=== PATIENT | female | born 1950 | race Caucasian/White ===

== ENCOUNTER 2016-12-05 16:16 | Emergency (ER) | payer OTHER ==
--- NOTE | 2016-12-05 17:21 | DIAGNOSTIC IMAGING REPORT ---
PROCEDURE: XR CHEST 2 VIEW INDICATION: COUGH TECHNIQUE: PA and lateral views. COMPARISON: None. FINDINGS: There is a 9 mm nodule projected over the left seventh rib posteriorly. This is just to the left of the omer. Heart and mediastinum are normal. Thorax is normal. No acute infiltrates. IMPRESSION: 1. 9 mm pulmonary nodule on the left. Chest CT is recommended to confirm. 2. Results were called to Edda Moran at 05:15 p.m.
--- NOTE | 2016-12-05 17:50 | ED ORDER SUMMARY ---
..... Patient: RADHA PENG OrderSheet [facility] VisitID: [id number] [address] [place] [address] 66y, F Registration Date/Time: 12/05/2016 ORDER SHEET Weight: 95.2 kg (stated) Allergies: None GENERAL ORDERS: Chest 2V Urgent (16:37 12/05/2016 HBivens A.R.N.P.) (Ack 16:46 LNations ER Tech1) (16:56 [facility]) MEDICATION ORDERS: Albuterol Neb w Atrovent 1 unit dose (NOW) (16:37 12/05/2016 HBivens A.R.N.P.) (16:49 KEpting) Solu-MEDROL IM 125 mg (NOW) (16:37 12/05/2016 HBivens A.R.N.P.) (Ack 17:21 Cami R.N.) (17:30 Neisha R.N.) IV FLUIDS: ORDER SHEET NOTES: [Electronically signed by Edda MoranR.N.PAwilda (20:38 12/05/2016)] [Electronically signed by Thien Mckeon R.N. (23:38 12/08/2016)] [Electronically locked/signed by Thien Mckeon R.N. (23:38 12/08/2016)]
--- NOTE | 2016-12-05 17:50 | ED NURSING NOTES ---
Clinical Report - Nurses [facility] [address] [place] [address] 12/05/2016 16:18 Patient: ARDHA PENG TRIAGE Triage time 16:26 Dec 05 2016. Chief Complaint: COUGH and FEVER and (pt reports a cough and fever x 1 week,). Alert. --16:34 Thien Mckeon R.N. 16:25 12/05/16. BP: 111/78. HR: 111. RR: 21. O2 saturation: 90% on room air. Temp: 98 F. Pain level now: 0/10. --16:34 Thien Mckeon R.N. Weight: 95.2 kg stated. Height/Length: 65 inches Per Patient. BMI: 35. --16:34 Thien cMkeon R.N. Medications Albuterol Sulfate Inhalation. --16:38 Thien Mckeon R.N. Cholecalciferol Oral. --16:38 Thien Mckeon R.N. Cyanocobalamin Oral. --16:38 Thien Mckeon R.N. Doxylamine Succinate (Sleep) Oral. --16:38 Thien Mckeon R.N. Metoprolol Succinate ER Oral 50 mg , daily. --16:39 Thien Mckeon R.N. [place] 3 Oral. --16:39 Thien Mckeon R.N. Omeprazole Oral 20 mg, 2x a day. --16:39 Thien Mckeon R.N. Probiotic Daily Oral. --16:40 Thien Mckeon R.N. Vitamin E Complex Oral (Capsule 400 unit) 1 capsule, daily. --16:40 Thien Mckeon R.N. Tramadol HCL Oral 50 mg, 4x a day as needed. --16:41 Thien Mckeon R.N. Allergies None. --16:33 Thien Mckeon R.N. Medication/allergy information source: the patient. --16:34 Thien Mckeon R.N. History Arrived by private vehicle. Historian: patient. Accompanied by family. Onset. (1 weeks ago). She has had fatigue. Reports muscle aches. 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 PAST MEDICAL HX: Immunizations: up-to-date. The patient has had a hysterectomy. SOCIAL HX: Smoker- current status unknown (cigarette). No alcohol use or drug use. ABUSE ASSESSMENT: No report of abuse. SELF HARM ASSESSMENT: A self harm assessment was performed. The patient answered "no" to the question "Do you have thoughts of harming or killing yourself?". FALL RISK ASSESSMENT: Fall risk assessment completed. No fall risk identified. NUTRITIONAL RISK ASSESSMENT: The nutritional risk assessment revealed no deficiencies. FUNCTIONAL ASSESSMENT: Functional assessment: no impairments noted. LEARNING NEEDS ASSESSMENT: The learning needs assessment revealed no barriers. SKIN INTEGRITY ASSESSMENT: Skin integrity risk assessment completed. No skin integrity risk identified. --16:34 Thien Mckeon R.N. PROBLEMS: Acid reflux. Hypertension. PreDiabetic. COPD - Chronic Obstructive Pulmonary Disease. Diverticulitis. --16:33 Thien Mckeon R.N. ADDITIONAL SURGERIES: Appendectomy. Cardiac Catheterization. Hysterectomy. Polyp removal . --16:33 Thien Mckeon R.N. Interventions ID band on patient. To treatment room. --16:34 Thien Mckeon R.N. PHYSICAL ASSESSMENT To room via wheelchair. Patient gowned. GENERAL / NEURO / PSYCH: Alert. Oriented X 4. Appears in no acute distress. HEENT: Pupils equal, round and reactive to light. Mucous membranes are pink. RESPIRATORY: Mild respiratory distress. CVS: Capillary refill less than 2 seconds. SKIN: Skin is warm and dry. Normal skin turgor. --16:35 Thien Mckeon R.N. NURSING PROGRESS NOTES Monitoring of patient in place. Patient gowned. Head of bed elevated. Reassurance given. Call light placed in reach. Side rails up x 1. Bed placed in lowest position. Brakes of bed on. --16:35 Thien Mckeon R.N. 16:49 12/05/2016 ALBUTEROL NEB W ATROVENT Neb TX 1 unit dose given. --16:49 Elisa Jones 17:20 12/05/2016 Solu-Medrol (MethylPREDNISolone Sodium Succ) IM 125 mg given. Given in the right deltoid. Allergies verified and confirmed 5 rights. --17:30 Donell Scott R.N. Call light placed in reach. Side rails up. --17:39 Thien Mckeon R.N. 17:38 12/05/16. BP: 106/77. HR: 101. O2 saturation: 93% on room air. Pain level now: 0/10. --17:39 Thien Mckeon R.N. DISPOSITION / DISCHARGE Condition at departure: improved. --18:29 Thien Mckeon R.N. Condition at departure: improved. No learning barriers present. Discharge instructions provided and reviewed with the patient. Reviewed medication(s) side effects, precautions, dosing and course information. Prescription(s) given to the patient. Patient verbalized understanding. Written instructions provided in Telugu. The patient was discharged by the nurse practitioner. She was discharged home and accompanied by family. She left the Emergency Department ambulatory and via private vehicle. Family member driving. ( pt reports improvement since presentation, pts dc instructions gone over with pt and sister, pt strongly encouraged to stop smoking, pt given rx and f/u, pt to lobby with steady gait, speaks full sentences, clears oral secretions). --18:31 Thien Mckeon R.N. 18:29 12/05/16. BP: 104/76. HR: 98. RR: 17. O2 saturation: 93% on room air. Temp: deferred. Pain level now: 0/10. --18:31 Thien Mckeon R.N. Locked/Released at 12/08/2016 23:38 by Thien Mckeon R.N.
--- NOTE | 2016-12-05 17:50 | ED NURSING NOTES ---
Clinical Report - Nurses [facility] [address] [place] [address] 12/05/2016 16:18 Patient: RADHA PENG TRIAGE Triage time 16:26 Dec 05 2016. Chief Complaint: COUGH and FEVER and (pt reports a cough and fever x 1 week,). Alert. --16:34 Thien Mckeon R.N. 16:25 12/05/16. BP: 111/78. HR: 111. RR: 21. O2 saturation: 90% on room air. Temp: 98 F. Pain level now: 0/10. --16:34 Thien Mckeon R.N. Weight: 95.2 kg stated. Height/Length: 65 inches Per Patient. BMI: 35. --16:34 Thine Mckeon R.N. Medications Albuterol Sulfate Inhalation. --16:38 Thien Mckeon R.N. Cholecalciferol Oral. --16:38 Thien Mckeon R.N. Cyanocobalamin Oral. --16:38 Thien Mckeon R.N. Doxylamine Succinate (Sleep) Oral. --16:38 Thien Mckeon R.N. Metoprolol Succinate ER Oral 50 mg , daily. --16:39 Thien Mckeon R.N. [place] 3 Oral. --16:39 Thien Mckeon R.N. Omeprazole Oral 20 mg, 2x a day. --16:39 Thien Mckeon R.N. Probiotic Daily Oral. --16:40 Thien Mckeon R.N. Vitamin E Complex Oral (Capsule 400 unit) 1 capsule, daily. --16:40 Thien Mckeon R.N. Tramadol HCL Oral 50 mg, 4x a day as needed. --16:41 Thien Mckeon R.N. Allergies None. --16:33 Thien Mckeon R.N. Medication/allergy information source: the patient. --16:34 Thien Mckeon R.N. History Arrived by private vehicle. Historian: patient. Accompanied by family. Onset. (1 weeks ago). She has had fatigue. Reports muscle aches. 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 PAST MEDICAL HX: Immunizations: up-to-date. The patient has had a hysterectomy. SOCIAL HX: Smoker- current status unknown (cigarette). No alcohol use or drug use. ABUSE ASSESSMENT: No report of abuse. SELF HARM ASSESSMENT: A self harm assessment was performed. The patient answered "no" to the question "Do you have thoughts of harming or killing yourself?". FALL RISK ASSESSMENT: Fall risk assessment completed. No fall risk identified. NUTRITIONAL RISK ASSESSMENT: The nutritional risk assessment revealed no deficiencies. FUNCTIONAL ASSESSMENT: Functional assessment: no impairments noted. LEARNING NEEDS ASSESSMENT: The learning needs assessment revealed no barriers. SKIN INTEGRITY ASSESSMENT: Skin integrity risk assessment completed. No skin integrity risk identified. --16:34 Thien Mckeon R.N. PROBLEMS: Acid reflux. Hypertension. PreDiabetic. COPD - Chronic Obstructive Pulmonary Disease. Diverticulitis. --16:33 Thien Mckeon R.N. ADDITIONAL SURGERIES: Appendectomy. Cardiac Catheterization. Hysterectomy. Polyp removal . --16:33 Thien Mckeon R.N. Interventions ID band on patient. To treatment room. --16:34 Thien Mckeon R.N. PHYSICAL ASSESSMENT To room via wheelchair. Patient gowned. GENERAL / NEURO / PSYCH: Alert. Oriented X 4. Appears in no acute distress. HEENT: Pupils equal, round and reactive to light. Mucous membranes are pink. RESPIRATORY: Mild respiratory distress. CVS: Capillary refill less than 2 seconds. SKIN: Skin is warm and dry. Normal skin turgor. --16:35 Thien Mckeon R.N. NURSING PROGRESS NOTES Monitoring of patient in place. Patient gowned. Head of bed elevated. Reassurance given. Call light placed in reach. Side rails up x 1. Bed placed in lowest position. Brakes of bed on. --16:35 Thien Mckeon R.N. 16:49 12/05/2016 ALBUTEROL NEB W ATROVENT Neb [place] 1 unit dose given. --16:49 Elisa Jones 17:20 12/05/2016 Solu-Medrol (MethylPREDNISolone Sodium Succ) IM 125 mg given. Given in the right deltoid. Allergies verified and confirmed 5 rights. --17:30 Donell Scott R.N. Call light placed in reach. Side rails up. --17:39 Thien Mckeon R.N. 17:38 12/05/16. BP: 106/77. HR: 101. O2 saturation: 93% on room air. Pain level now: 0/10. --17:39 Thien Mckeon R.N. DISPOSITION / DISCHARGE Condition at departure: improved. --18:29 Thien Mckeon R.N. Condition at departure: improved. No learning barriers present. Discharge instructions provided and reviewed with the patient. Reviewed medication(s) side effects, precautions, dosing and course information. Prescription(s) given to the patient. Patient verbalized understanding. Written instructions provided in Frisian. The patient was discharged by the nurse practitioner. She was discharged home and accompanied by family. She left the Emergency Department ambulatory and via private vehicle. Family member driving. ( pt reports improvement since presentation, pts dc instructions gone over with pt and sister, pt strongly encouraged to stop smoking, pt given rx and f/u, pt to lobby with steady gait, speaks full sentences, clears oral secretions). --18:31 Thien Mckeon R.N. 18:29 12/05/16. BP: 104/76. HR: 98. RR: 17. O2 saturation: 93% on room air. Temp: deferred. Pain level now: 0/10. --18:31 Thien Mckeon R.N. Locked/Released at 12/08/2016 23:38 by Thien Mckeon R.N.
--- NOTE | 2016-12-05 17:50 | ED CLINICAL REPORT ---
Clinical Report - Physicians/Mid Levels [facility] [address] [place] [address] 12/05/2016 16:18 Patient: RADHA PENG Time Seen: 16:26; upon arrival, initial patient contact, initial documentation, patient care assumed. Arrived- By private vehicle. Historian- patient and family. HISTORY OF PRESENT ILLNESS Chief Complaint: COUGH and FEVER. This started about 1 weeks ago and is still present. The illness is described as moderate. The patient has had clear sputum, a cough, fever and muscle aches. She has had mild difficulty breathing (did neb tx approx 2 hrs ago, does neb tx daily, usually twice daily or more depending on weather, pollen). The patient has also had wheezing. No chest discomfort or pain, sore throat or nasal congestion or discharge. No sinus pressure, sinus drainage or ear pain. Additional history - No known contact with a sick individual. No recent travel. Similar symptoms previously: Recent medical care: Not recently seen/assessed. REVIEW OF SYSTEMS All systems otherwise negative, except as recorded above. PAST HISTORY See nurses notes. PROBLEMS: Acid reflux. Hypertension. PreDiabetic. COPD - Chronic Obstructive Pulmonary Disease. Diverticulitis. --16:33 Thien Mckeon, REsther. ADDITIONAL SURGERIES: Appendectomy. Cardiac Catheterization. Hysterectomy. Polyp removal . --16:33 Thien Mckeon R.N. SOCIAL HISTORY Light tobacco smoker. Not exposed to second-hand smoke at home. No alcohol use or drug use. No recent travel. Is a local resident. FAMILY HISTORY Negative. ADDITIONAL NOTES The nursing notes have been reviewed with agreement regarding the chief complaint, HPI, ROS, PMH and patient medications and allergies. PHYSICAL EXAM Vital Signs: 12/05/2016 16:25 BP: 111/78. HR: 111. RR: 21. O2 saturation: 90%. Temp: 98 F. Pain level now: 0/10. Have been reviewed as abnormal and appear to be correct. Blood pressure normal. Tachycardic. Respiratory rate normal. Temperature normal. Oxygen saturation low. Appearance: Alert. No acute distress. Eyes: Pupils equal, round and reactive to light. Eyes normal inspection. ENT: Ears normal. Nose normal. Pharynx normal. Uvula midline. Neck: Normal inspection. Neck supple. CVS: Normal heart rate and rhythm. Heart sounds normal. Pulses normal. Respiratory: No respiratory distress. Breath sounds abnormal. Inspiratory mild bilateral wheezes diffusely. Abdomen: Moderately obese. Back: Normal inspection. Skin: Skin warm and dry. Normal skin color. No rash. Normal skin turgor. Extremities: Extremities exhibit normal ROM. No lower extremity edema. Neuro: Oriented X 3. No motor deficit. No sensory deficit. LABS, X-RAYS, AND EKG Chest X-ray: (IMPRESSION: 1. 9 mm pulmonary nodule on the left. Chest CT is recommended to confirm. 2. Results were called to Edda Moran at 05:15 p.m. Electronically Final signed by:Neil Ventura MD 12/05/2016 5:22:28 PM). The X-rays were interpreted by the radiologist and discussed with the radiologist. PROGRESS AND PROCEDURES Course of Care: 17:37 12/05/16. Resp even and unlabored, nad, no change in lungs sounds, still B insp mild wheezing thru out, pulse ox ranging from 89-95% ra. Patient and family counseled in person regarding the patient's stable condition, test results and diagnosis. Differential Diagnosis: Other possible considerations: copd exac, bronchitis, pneumonia, asthma, uri, viral illness, flu. Above considerations are based on history, physical exam, reassessment and X-Ray data. Differential diagnosis was discussed with patient. Disposition: Discharged home in good and improved condition (17:50). Condition: good and stable. CLINICAL IMPRESSION Acute viral bronchitis. Stable COPD (chronic bronchitis) INSTRUCTIONS Drink plenty of fluids. Do not smoke. Warnings: Further evaluation is necessary in order to conduct further tests and assess the possibility of serious illness (9mm nodule seen on Left lower lung lobe, CT recommended, as discussed). It is very important to follow up with a physician. GENERAL WARNINGS: Return or contact your physician immediately if your condition worsens or changes unexpectedly, if not improving as expected, or if other problems arise. Specifically return if problem worsens. Prescription Medications: Prednisone 20 mg: take 3 orally every day for 5 days. Dispense fifteen (15). No refills. Follow-up: Follow up with your doctor tomorrow even if well. Call for an appointment. Summary of care provided to patient. Understanding of the discharge instructions verbalized by patient. (Electronically signed by Edda Moran A.R.N.P. 12/05/2016 20:38)
--- NOTE | 2016-12-05 17:50 | ED ORDER SUMMARY ---
..... Patient: RADHA PENG OrderSheet [facility] VisitID: [id number] [address] [place] [address] 66y, F Registration Date/Time: 12/05/2016 ORDER SHEET Weight: 95.2 kg (stated) Allergies: None GENERAL ORDERS: Chest 2V Urgent (16:37 12/05/2016 HBivens A.R.N.P.) (Ack 16:46 LNations ER Tech1) (16:56 [facility]) MEDICATION ORDERS: Albuterol Neb w Atrovent 1 unit dose (NOW) (16:37 12/05/2016 HBivens A.R.N.P.) (16:49 KEpting) Solu-MEDROL IM 125 mg (NOW) (16:37 12/05/2016 HBivens A.R.N.P.) (Ack 17:21 Cami R.N.) (17:30 Neisha R.N.) IV FLUIDS: ORDER SHEET NOTES: [Electronically signed by Edda MoranR.N.PAwilda (20:38 12/05/2016)] [Electronically signed by Thien Mckeon R.N. (23:38 12/08/2016)] [Electronically locked/signed by Thien Mckeon R.N. (23:38 12/08/2016)]
--- NOTE | 2016-12-08 23:38 | ED MAR SUMMARY ---
..... Medication Administration Record [facility] [address] [place] [address] Patient: RADHA PENG Visit ID: [id number] 66y, F Weight: 95.2 kg Height/Length: 65 in BMI: 35 ALLERGIES: None Given 16:49 12/05/2016 Elisa Jones, Medication Administered: ALBUTEROL NEB W ATROVENT, Dose: 1 unit dose Neb TX. Medication Ordered: Albuterol Neb w Atrovent 1 unit dose (NOW). Given 17:20 12/05/2016 Donell Scott R.N. Medication Administered: SOLU-MEDROL [IM] (METHYLPREDNISOLONE SODIUM SUCC), Dose: 125 mg IM. Medication Ordered: Solu-MEDROL IM 125 mg (NOW).
--- NOTE | 2016-12-08 23:38 | ED DISCHARGE INSTRUCTIONS ---
Patient: RADHA PENG General Instructions [facility] VisitID: [id number] [place] [address] 66y, F Registration Date/Time: 12/05/2016 Acute viral bronchitis. Stable COPD (chronic bronchitis) INSTRUCTIONS Drink plenty of fluids. Do not smoke. Warnings: Further evaluation is necessary in order to conduct further tests and assess the possibility of serious illness (9mm nodule seen on Left lower lung lobe, CT recommended, as discussed). It is very important to follow up with a physician. GENERAL WARNINGS: Return or contact your physician immediately if your condition worsens or changes unexpectedly, if not improving as expected, or if other problems arise. Specifically return if problem worsens. Prescription Medications: Prednisone 20 mg: take 3 orally every day for 5 days. Dispense fifteen (15). No refills. Follow-up: Follow up with your doctor tomorrow even if well. Call for an appointment. Summary of care provided to patient. Understanding of the discharge instructions verbalized by patient. ADDITIONAL INFORMATION Bronchitis, Viral (Adult: No Abx) You have a viral bronchitis. This illness is contagious during the first few days and is spread through the air by coughing and sneezing, or by direct contact (touching the sick person and then touching your own eyes, nose, or mouth). Most viral illnesses resolve within 10-14 days with rest and simple home remedies, although they may sometimes last for several weeks. Antibiotics will not kill a virus and are generally not prescribed for this condition. Home Care: If symptoms are severe, rest at home for the first 2-3 days. When resuming activity, don't let yourself become overly tired. Do not smoke and avoid the smoke of others. You may use acetaminophen (Tylenol) or ibuprofen (Motrin, Advil) to control fever or pain, unless another pain medicine was prescribed. [NOTE: If you have chronic liver or kidney disease or ever had a stomach ulcer or GI bleeding, talk with your doctor before using these medicines.] (Aspirin should never be used in anyone under 18 years of age who is ill with a fever. It may cause severe liver damage.) Your appetite may be poor so a light diet is fine. Avoid dehydration by drinking 6-8 glasses of fluids per day (water, sport drinks such as Gatorade, juices, tea, soup, etc.). Extra fluids will help loosen secretions in the nose and lung. Sfzl-wgg-deqdeue cold medicines will not shorten the length of the illness, but may be helpful for cough (Robitussin DM), sore throat (Chloraseptic lozenges or spray), nasal and sinus congestion (Actifed or Sudafed). [NOTE: Do not use decongestants if you have high blood pressure.] Follow Up with your doctor or as directed by our staff if you are not improving over the next week. NOTE: If you are age 65 or older, or if you have chronic asthma or COPD, we recommend a PNEUMOCOCCAL VACCINATION every five years and a yearly INFLUENZAVACCINATION (FLU-SHOT) every . Ask your doctor about this. If you had an X-ray, a radiologist will review it. You will be notified of any new findings that may affect your care.] Get Prompt Medical Attention if any of the following occur: Fever over 100.4F (38.0C) for more than three days Trouble breathing, wheezing or pain with breathing Coughing up blood or increased amounts of colored sputum Weakness, drowsiness, headache, facial pain, ear pain or a stiff neck Bronchitis With Wheezing (Viral Or Bacterial: Adult) Bronchitis is an infection of the air passages. It often occurs during the common cold and is usually caused by a virus. Symptoms include cough with mucus (phlegm) and low-grade fever. If there is a lot of inflammation, air flow is restricted. The air passages may also go into spasm, especially if you are an asthmatic. This causes wheezing and difficulty breathing even in persons who do not have asthma. Bronchitis usually lasts 7-14 days. The wheezing should improve with treatment during the first week. An inhaler is often prescribed to relax the air passages and stop wheezing. Antibiotics will be prescribed if your doctor thinks there is also a secondary bacterial infection. Home Care: If symptoms are severe, rest at home for the first 2-3 days. When resuming activity, don't let yourself become overly tired. Do not smoke and avoid exposure to the smoke of others. You may use acetaminophen (Tylenol) or ibuprofen (Motrin, Advil) to control fever, unless another medicine was prescribed. [NOTE: If you have chronic liver or kidney disease or ever had a stomach ulcer or GI bleeding, talk with your doctor before using these medicines.] (Aspirin should never be used in anyone under 18 years of age who is ill with a fever. It may cause severe liver damage.) Your appetite may be poor so a light diet is fine. Avoid dehydration by drinking 6-8 glasses of fluids per day (water, soft, drinks, juices, tea, soup, etc.). Extra fluids will help loosen secretions in the lungs. Gyzj-kkb-uqtjpod cough medicines that containdextromethorphan(such as Robitussin DM) and decongestants (Actifed or Sudafed) may help relieve cough and congestion. [NOTE: Do not use decongestants if you have high blood pressure.] If you were given an inhaler, use it exactly as directed. If you need to use it more often than prescribed, your condition may be worsening. Contact your doctor or this facility. If prescribed, finish all antibiotic medicine, even if you are feeling better after only a few days. Follow Up With Your Doctor Or As Directed If You Are Not Starting To Feel Better After Three Days. [NOTE: If you are age 65 or older, or if you have chronic asthma or COPD, we recommend a pneumococcal vaccination every five years and a yearly influenza vaccination (flu shot) every . Ask your doctor about this. If you had an x-ray or EKG (electrocardiogram), it will be reviewed by a specialist. You will be notified of any new findings that may affect your care.] Get Prompt Medical Attention If Any Of The Following Occur: Increased wheezing, shortness of breath or pain with breathing Fever of 100.4F (38C) oral or higher, not better with fever medication Coughing up blood or increasing amounts of colored sputum Weakness, drowsiness, headache, facial pain, ear pain or a stiff neck Lower leg swelling, tenderness, redness or pain Bronchitis, Viral (Adult: No Abx) You have a viral bronchitis. This illness is contagious during the first few days and is spread through the air by coughing and sneezing, or by direct contact (touching the sick person and then touching your own eyes, nose, or mouth). Most viral illnesses resolve within 10-14 days with rest and simple home remedies, although they may sometimes last for several weeks. Antibiotics will not kill a virus and are generally not prescribed for this condition. Home Care: If symptoms are severe, rest at home for the first 2-3 days. When resuming activity, don't let yourself become overly tired. Do not smoke and avoid the smoke of others. You may use acetaminophen (Tylenol) or ibuprofen (Motrin, Advil) to control fever or pain, unless another pain medicine was prescribed. [NOTE: If you have chronic liver or kidney disease or ever had a stomach ulcer or GI bleeding, talk with your doctor before using these medicines.] (Aspirin should never be used in anyone under 18 years of age who is ill with a fever. It may cause severe liver damage.) Your appetite may be poor so a light diet is fine. Avoid dehydration by drinking 6-8 glasses of fluids per day (water, sport drinks such as Gatorade, juices, tea, soup, etc.). Extra fluids will help loosen secretions in the nose and lung. Jhox-fli-atmoujl cold medicines will not shorten the length of the illness, but may be helpful for cough (Robitussin DM), sore throat (Chloraseptic lozenges or spray), nasal and sinus congestion (Actifed or Sudafed). [NOTE: Do not use decongestants if you have high blood pressure.] Follow Up with your doctor or as directed by our staff if you are not improving over the next week. NOTE: If you are age 65 or older, or if you have chronic asthma or COPD, we recommend a PNEUMOCOCCAL VACCINATION every five years and a yearly INFLUENZAVACCINATION (FLU-SHOT) every . Ask your doctor about this. If you had an X-ray, a radiologist will review it. You will be notified of any new findings that may affect your care.] Get Prompt Medical Attention if any of the following occur: Fever over 100.4F (38.0C) for more than three days Trouble breathing, wheezing or pain with breathing Coughing up blood or increased amounts of colored sputum Weakness, drowsiness, headache, facial pain, ear pain or a stiff neck Prednisone Oral tablet What is this medicine? PREDNISONE (PRED ni sone) is a corticosteroid. It is commonly used to treat inflammation of the skin, joints, lungs, and other organs. Common conditions treated include asthma, allergies, and arthritis. It is also used for other conditions, such as blood disorders and diseases of the adrenal glands. How should I use this medicine? Take this medicine by mouth with a glass of water. Follow the directions on the prescription label. Take this medicine with food. If you are taking this medicine once a day, take it in the morning. Do not take more medicine than you are told to take. Do not suddenly stop taking your medicine because you may develop a severe reaction. Your doctor will tell you how much medicine to take. If your doctor wants you to stop the medicine, the dose may be slowly lowered over time to avoid any side effects. Talk to your tree pruner regarding the use of this medicine in children. Special care may be needed. What side effects may I notice from receiving this medicine? Side effects that you should report to your doctor or health cna caregiver as soon as possible: allergic reactions like skin rash, itching or hives, swelling of the face, lips, or tongue changes in emotions or moods changes in vision depressed mood eye pain fever or chills, cough, sore throat, pain or difficulty passing urine increased thirst swelling of ankles, feet Side effects that usually do not require medical attention (report to your doctor or health cna caregiver if they continue or are bothersome): confusion, excitement, restlessness headache nausea, vomiting skin problems, acne, thin and shiny skin trouble sleeping weight gain What may interact with this medicine? Do not take this medicine with any of the following medications: metyrapone mifepristone This medicine may also interact with the following medications: aminoglutethimide amphotericin B aspirin and aspirin-like medicines barbiturates certain medicines for diabetes, like glipizide or glyburide cholestyramine cholinesterase inhibitors cyclosporine digoxin diuretics ephedrine female hormones, like estrogens and control pills isoniazid ketoconazole NSAIDS, medicines for pain and inflammation, like ibuprofen or naproxen phenytoin rifampin toxoids vaccines warfarin What if I miss a dose? If you miss a dose, take it as soon as you can. If it is almost time for your next dose, talk to your doctor or health cna caregiver. You may need to miss a dose or take an extra dose. Do not take double or extra doses without advice. Where should I keep my medicine? Keep out of the reach of children. Store at room temperature between 15 and 30 degrees C (59 and 86 degrees F). Protect from light. Keep container tightly closed. Throw away any unused medicine after the expiration date. What should I tell my health care provider before I take this medicine? They need to know if you have any of these conditions: Reinaldo's syndrome diabetes glaucoma heart disease high blood pressure infection (especially a virus infection such as chickenpox, cold sores, or herpes) kidney disease liver disease mental illness myasthenia gravis osteoporosis seizures stomach or intestine problems thyroid disease an unusual or allergic reaction to lactose, prednisone, other medicines, foods, dyes, or preservatives or trying to get breast-feeding What should I watch for while using this medicine? Visit your doctor or health cna caregiver for regular checks on your progress. If you are taking this medicine over a prolonged period, carry an identification card with your name and address, the type and dose of your medicine, and your doctor's name and address. This medicine may increase your risk of getting an infection. Tell your doctor or health cna caregiver if you are around anyone with measles or chickenpox, or if you develop sores or blisters that do not heal properly. If you are going to have surgery, tell your doctor or health cna caregiver that you have taken this medicine within the last twelve months. Ask your doctor or health cna caregiver about your diet. You may need to lower the amount of salt you eat. This medicine may affect blood sugar levels. If you have diabetes, check with your doctor or health cna caregiver before you change your diet or the dose of your diabetic medicine. You have been given the following additional information: Bronchitis, No Antibiotic (Adult) Bronchitis With Wheezing (Adult) Bronchitis, No Antibiotic (Adult) Prednisone Oral tablet (Electronically signed by Edda Moran A.R.N.P. 12/05/2016 20:38)
--- NOTE | 2016-12-08 23:38 | ED DISCHARGE INSTRUCTIONS ---
Patient: RADHA PENG General Instructions [facility] VisitID: [id number] [place] [address] 66y, F Registration Date/Time: 12/05/2016 Acute viral bronchitis. Stable COPD (chronic bronchitis) INSTRUCTIONS Drink plenty of fluids. Do not smoke. Warnings: Further evaluation is necessary in order to conduct further tests and assess the possibility of serious illness (9mm nodule seen on Left lower lung lobe, CT recommended, as discussed). It is very important to follow up with a physician. GENERAL WARNINGS: Return or contact your physician immediately if your condition worsens or changes unexpectedly, if not improving as expected, or if other problems arise. Specifically return if problem worsens. Prescription Medications: Prednisone 20 mg: take 3 orally every day for 5 days. Dispense fifteen (15). No refills. Follow-up: Follow up with your doctor tomorrow even if well. Call for an appointment. Summary of care provided to patient. Understanding of the discharge instructions verbalized by patient. ADDITIONAL INFORMATION Bronchitis, Viral (Adult: No Abx) You have a viral bronchitis. This illness is contagious during the first few days and is spread through the air by coughing and sneezing, or by direct contact (touching the sick person and then touching your own eyes, nose, or mouth). Most viral illnesses resolve within 10-14 days with rest and simple home remedies, although they may sometimes last for several weeks. Antibiotics will not kill a virus and are generally not prescribed for this condition. Home Care: If symptoms are severe, rest at home for the first 2-3 days. When resuming activity, don't let yourself become overly tired. Do not smoke and avoid the smoke of others. You may use acetaminophen (Tylenol) or ibuprofen (Motrin, Advil) to control fever or pain, unless another pain medicine was prescribed. [NOTE: If you have chronic liver or kidney disease or ever had a stomach ulcer or GI bleeding, talk with your doctor before using these medicines.] (Aspirin should never be used in anyone under 18 years of age who is ill with a fever. It may cause severe liver damage.) Your appetite may be poor so a light diet is fine. Avoid dehydration by drinking 6-8 glasses of fluids per day (water, sport drinks such as Gatorade, juices, tea, soup, etc.). Extra fluids will help loosen secretions in the nose and lung. Pisq-uyg-vsbgqok cold medicines will not shorten the length of the illness, but may be helpful for cough (Robitussin DM), sore throat (Chloraseptic lozenges or spray), nasal and sinus congestion (Actifed or Sudafed). [NOTE: Do not use decongestants if you have high blood pressure.] Follow Up with your doctor or as directed by our staff if you are not improving over the next week. NOTE: If you are age 65 or older, or if you have chronic asthma or COPD, we recommend a PNEUMOCOCCAL VACCINATION every five years and a yearly INFLUENZAVACCINATION (FLU-SHOT) every . Ask your doctor about this. If you had an X-ray, a radiologist will review it. You will be notified of any new findings that may affect your care.] Get Prompt Medical Attention if any of the following occur: Fever over 100.4F (38.0C) for more than three days Trouble breathing, wheezing or pain with breathing Coughing up blood or increased amounts of colored sputum Weakness, drowsiness, headache, facial pain, ear pain or a stiff neck Bronchitis With Wheezing (Viral Or Bacterial: Adult) Bronchitis is an infection of the air passages. It often occurs during the common cold and is usually caused by a virus. Symptoms include cough with mucus (phlegm) and low-grade fever. If there is a lot of inflammation, air flow is restricted. The air passages may also go into spasm, especially if you are an asthmatic. This causes wheezing and difficulty breathing even in persons who do not have asthma. Bronchitis usually lasts 7-14 days. The wheezing should improve with treatment during the first week. An inhaler is often prescribed to relax the air passages and stop wheezing. Antibiotics will be prescribed if your doctor thinks there is also a secondary bacterial infection. Home Care: If symptoms are severe, rest at home for the first 2-3 days. When resuming activity, don't let yourself become overly tired. Do not smoke and avoid exposure to the smoke of others. You may use acetaminophen (Tylenol) or ibuprofen (Motrin, Advil) to control fever, unless another medicine was prescribed. [NOTE: If you have chronic liver or kidney disease or ever had a stomach ulcer or GI bleeding, talk with your doctor before using these medicines.] (Aspirin should never be used in anyone under 18 years of age who is ill with a fever. It may cause severe liver damage.) Your appetite may be poor so a light diet is fine. Avoid dehydration by drinking 6-8 glasses of fluids per day (water, soft, drinks, juices, tea, soup, etc.). Extra fluids will help loosen secretions in the lungs. Jhzt-qht-tjhfgco cough medicines that containdextromethorphan(such as Robitussin DM) and decongestants (Actifed or Sudafed) may help relieve cough and congestion. [NOTE: Do not use decongestants if you have high blood pressure.] If you were given an inhaler, use it exactly as directed. If you need to use it more often than prescribed, your condition may be worsening. Contact your doctor or this facility. If prescribed, finish all antibiotic medicine, even if you are feeling better after only a few days. Follow Up With Your Doctor Or As Directed If You Are Not Starting To Feel Better After Three Days. [NOTE: If you are age 65 or older, or if you have chronic asthma or COPD, we recommend a pneumococcal vaccination every five years and a yearly influenza vaccination (flu shot) every . Ask your doctor about this. If you had an x-ray or EKG (electrocardiogram), it will be reviewed by a specialist. You will be notified of any new findings that may affect your care.] Get Prompt Medical Attention If Any Of The Following Occur: Increased wheezing, shortness of breath or pain with breathing Fever of 100.4F (38C) oral or higher, not better with fever medication Coughing up blood or increasing amounts of colored sputum Weakness, drowsiness, headache, facial pain, ear pain or a stiff neck Lower leg swelling, tenderness, redness or pain Bronchitis, Viral (Adult: No Abx) You have a viral bronchitis. This illness is contagious during the first few days and is spread through the air by coughing and sneezing, or by direct contact (touching the sick person and then touching your own eyes, nose, or mouth). Most viral illnesses resolve within 10-14 days with rest and simple home remedies, although they may sometimes last for several weeks. Antibiotics will not kill a virus and are generally not prescribed for this condition. Home Care: If symptoms are severe, rest at home for the first 2-3 days. When resuming activity, don't let yourself become overly tired. Do not smoke and avoid the smoke of others. You may use acetaminophen (Tylenol) or ibuprofen (Motrin, Advil) to control fever or pain, unless another pain medicine was prescribed. [NOTE: If you have chronic liver or kidney disease or ever had a stomach ulcer or GI bleeding, talk with your doctor before using these medicines.] (Aspirin should never be used in anyone under 18 years of age who is ill with a fever. It may cause severe liver damage.) Your appetite may be poor so a light diet is fine. Avoid dehydration by drinking 6-8 glasses of fluids per day (water, sport drinks such as Gatorade, juices, tea, soup, etc.). Extra fluids will help loosen secretions in the nose and lung. Pzyy-pji-daxvnkq cold medicines will not shorten the length of the illness, but may be helpful for cough (Robitussin DM), sore throat (Chloraseptic lozenges or spray), nasal and sinus congestion (Actifed or Sudafed). [NOTE: Do not use decongestants if you have high blood pressure.] Follow Up with your doctor or as directed by our staff if you are not improving over the next week. NOTE: If you are age 65 or older, or if you have chronic asthma or COPD, we recommend a PNEUMOCOCCAL VACCINATION every five years and a yearly INFLUENZAVACCINATION (FLU-SHOT) every . Ask your doctor about this. If you had an X-ray, a radiologist will review it. You will be notified of any new findings that may affect your care.] Get Prompt Medical Attention if any of the following occur: Fever over 100.4F (38.0C) for more than three days Trouble breathing, wheezing or pain with breathing Coughing up blood or increased amounts of colored sputum Weakness, drowsiness, headache, facial pain, ear pain or a stiff neck Prednisone Oral tablet What is this medicine? PREDNISONE (PRED ni sone) is a corticosteroid. It is commonly used to treat inflammation of the skin, joints, lungs, and other organs. Common conditions treated include asthma, allergies, and arthritis. It is also used for other conditions, such as blood disorders and diseases of the adrenal glands. How should I use this medicine? Take this medicine by mouth with a glass of water. Follow the directions on the prescription label. Take this medicine with food. If you are taking this medicine once a day, take it in the morning. Do not take more medicine than you are told to take. Do not suddenly stop taking your medicine because you may develop a severe reaction. Your doctor will tell you how much medicine to take. If your doctor wants you to stop the medicine, the dose may be slowly lowered over time to avoid any side effects. Talk to your transfer and pumphouse operator regarding the use of this medicine in children. Special care may be needed. What side effects may I notice from receiving this medicine? Side effects that you should report to your doctor or health cardiac care nurse as soon as possible: allergic reactions like skin rash, itching or hives, swelling of the face, lips, or tongue changes in emotions or moods changes in vision depressed mood eye pain fever or chills, cough, sore throat, pain or difficulty passing urine increased thirst swelling of ankles, feet Side effects that usually do not require medical attention (report to your doctor or health cardiac care nurse if they continue or are bothersome): confusion, excitement, restlessness headache nausea, vomiting skin problems, acne, thin and shiny skin trouble sleeping weight gain What may interact with this medicine? Do not take this medicine with any of the following medications: metyrapone mifepristone This medicine may also interact with the following medications: aminoglutethimide amphotericin B aspirin and aspirin-like medicines barbiturates certain medicines for diabetes, like glipizide or glyburide cholestyramine cholinesterase inhibitors cyclosporine digoxin diuretics ephedrine female hormones, like estrogens and control pills isoniazid ketoconazole NSAIDS, medicines for pain and inflammation, like ibuprofen or naproxen phenytoin rifampin toxoids vaccines warfarin What if I miss a dose? If you miss a dose, take it as soon as you can. If it is almost time for your next dose, talk to your doctor or health cardiac care nurse. You may need to miss a dose or take an extra dose. Do not take double or extra doses without advice. Where should I keep my medicine? Keep out of the reach of children. Store at room temperature between 15 and 30 degrees C (59 and 86 degrees F). Protect from light. Keep container tightly closed. Throw away any unused medicine after the expiration date. What should I tell my health care provider before I take this medicine? They need to know if you have any of these conditions: Reinaldo's syndrome diabetes glaucoma heart disease high blood pressure infection (especially a virus infection such as chickenpox, cold sores, or herpes) kidney disease liver disease mental illness myasthenia gravis osteoporosis seizures stomach or intestine problems thyroid disease an unusual or allergic reaction to lactose, prednisone, other medicines, foods, dyes, or preservatives or trying to get breast-feeding What should I watch for while using this medicine? Visit your doctor or health cardiac care nurse for regular checks on your progress. If you are taking this medicine over a prolonged period, carry an identification card with your name and address, the type and dose of your medicine, and your doctor's name and address. This medicine may increase your risk of getting an infection. Tell your doctor or health cardiac care nurse if you are around anyone with measles or chickenpox, or if you develop sores or blisters that do not heal properly. If you are going to have surgery, tell your doctor or health cardiac care nurse that you have taken this medicine within the last twelve months. Ask your doctor or health cardiac care nurse about your diet. You may need to lower the amount of salt you eat. This medicine may affect blood sugar levels. If you have diabetes, check with your doctor or health cardiac care nurse before you change your diet or the dose of your diabetic medicine. You have been given the following additional information: Bronchitis, No Antibiotic (Adult) Bronchitis With Wheezing (Adult) Bronchitis, No Antibiotic (Adult) Prednisone Oral tablet (Electronically signed by Edda Moran A.R.N.P. 12/05/2016 20:38)
--- NOTE | 2016-12-08 23:38 | ED MED RECONCILIATION SUMMARY ---
Patient: RADHA PENG Medication Reconciliation Report [facility] VisitID: [id number] [address] [place] [address] 66y, F Registration Date/Time: 12/05/2016 Weight: 95.2 kg Height/Length: 65 in. BMI: 35.0 ALLERGIES: None The patient's Home Medications are listed below: THE FOLLOWING MEDICATIONS NEED TO BE RECONCILED: Albuterol Sulfate Inhalation Cholecalciferol Oral Cyanocobalamin Oral Doxylamine Succinate (Sleep) Oral Metoprolol Succinate ER Oral 50 mg , daily Dendron 3 Oral Omeprazole Oral 20 mg, 2x a day Probiotic Daily Oral Tramadol HCL Oral 50 mg, 4x a day Vitamin E Complex Oral (400 unit) 1 capsule, daily The source(s) of the original Home Medication information: patient The following Medications were given to the patient in the Emergency Department: ALBUTEROL NEB W ATROVENT Neb [place] 1 unit dose, administered: 12/05/2016 4:49:00 PM Solu-Medrol [IM] IM 125 mg, administered: 12/05/2016 5:20:00 PM The following Medications were prescribed to the patient: Prednisone 20 mg: take 3 orally every day for 5 days. Dispense fifteen (15). No refills. -- Edda Moran A.R.N.P.
--- NOTE | 2016-12-08 23:38 | ED MED RECONCILIATION SUMMARY ---
Patient: RADHA PENG Medication Reconciliation Report [facility] VisitID: [id number] [address] [place] [address] 66y, F Registration Date/Time: 12/05/2016 Weight: 95.2 kg Height/Length: 65 in. BMI: 35.0 ALLERGIES: None The patient's Home Medications are listed below: THE FOLLOWING MEDICATIONS NEED TO BE RECONCILED: Albuterol Sulfate Inhalation Cholecalciferol Oral Cyanocobalamin Oral Doxylamine Succinate (Sleep) Oral Metoprolol Succinate ER Oral 50 mg , daily Dixie 3 Oral Omeprazole Oral 20 mg, 2x a day Probiotic Daily Oral Tramadol HCL Oral 50 mg, 4x a day Vitamin E Complex Oral (400 unit) 1 capsule, daily The source(s) of the original Home Medication information: patient The following Medications were given to the patient in the Emergency Department: ALBUTEROL NEB W ATROVENT Neb [place] 1 unit dose, administered: 12/05/2016 4:49:00 PM Solu-Medrol [IM] IM 125 mg, administered: 12/05/2016 5:20:00 PM The following Medications were prescribed to the patient: Prednisone 20 mg: take 3 orally every day for 5 days. Dispense fifteen (15). No refills. -- Edda Moran A.R.N.P.
--- NOTE | 2016-12-08 23:38 | ED MAR SUMMARY ---
..... Medication Administration Record [facility] [address] [place] [address] Patient: RADHA PENG Visit ID: [id number] 66y, F Weight: 95.2 kg Height/Length: 65 in BMI: 35 ALLERGIES: None Given 16:49 12/05/2016 Elisa Jones, Medication Administered: ALBUTEROL NEB W ATROVENT, Dose: 1 unit dose Neb [place]. Medication Ordered: Albuterol Neb w Atrovent 1 unit dose (NOW). Given 17:20 12/05/2016 Donell Scott R.N. Medication Administered: SOLU-MEDROL [IM] (METHYLPREDNISOLONE SODIUM SUCC), Dose: 125 mg IM. Medication Ordered: Solu-MEDROL IM 125 mg (NOW).
== END 2016-12-05 18:23 | disposition home or self-care (01) ==
LOC: ED SRH 16:16
DX: J44.0 Chronic obstructive pulmonary disease with (acute) lower respiratory infection (principal); J20.8 Acute bronchitis due to other specified organisms; I10 Essential (primary) hypertension; F17.210 Nicotine dependence, cigarettes, uncomplicated